=== PATIENT | male | born 1955 | race Caucasian/White ===

== ENCOUNTER 2024-02-25 15:25 | Emergency (ER) | payer MEDICARE, SELFPAY ==
[2024-02-25 15:33] VITALS: BP 146/80; PULSE 59; RESP 16; TEMP 36.8; O2SAT 97; BMI 17.4
--- NOTE | 2024-02-25 15:45 | XRR_ITS ---
PROCEDURE INFORMATION: Exam: XR Chest Exam date and time: 02/25/2024 4:08 PM Age: 68 years old Clinical indication: Other: AMS TECHNIQUE: Imaging protocol: Radiologic exam of the chest. Views: 1 view. COMPARISON: No relevant prior studies available. FINDINGS: Lungs: Unremarkable. No consolidation. Pleural spaces: Unremarkable. No pleural effusion. No pneumothorax. Heart/Mediastinum: Unremarkable. No cardiomegaly. Bones/joints: No acute findings. XR/XR chest 1V portable [id number] IMPRESSION: No acute findings.
--- NOTE | 2024-02-25 15:46 | ECG_ITS ---
[facility] Test Date: 2024-02-25 Pat Name: Tez Hooper Department: Room: Gender: Male Oncologist: : [id number] Requested By: Jenni Juarez Order Number: [id number] Isidra MD: Brice Salinas M.D. Measurements Intervals [place] Rate: 45 P: 232 MD: 246 QRS: 59 QRSD: 94 T: 65 QT: 454 QTc: 396 Interpretive Statements SINUS RHYTHM VOLTAGE CRITERIA FOR LVH [MEETS CRITERIA IN ONE OF: R(aVL), S(V1), R(V5), R(V5/V6)+S(V1)] No previous ECG available for comparison Electronically Signed On 02-25-2024 23:32:26 CDT by Brice Salinas M.D. [id number]
[2024-02-25 16:16] LABS: Basophils # 0.1 10^3/uL (0.0-0.1); Basophils % 0.6 %; Eosinophils # 0.1 10^3/uL (0.0-0.8); Eosinophils % 0.7 %; Hematocrit 40.3 % (37-53); Lymphocytes # 1.9 10^3/uL (0.8-4.8); Lymphocytes % 22.1 %; Mean Corpuscular Volume 94.2 fl (82-101); Mean Platelet Volume 10.5 fL (7.4-10.4); Monocytes % 11.1 %; Neutrophils # 5.56 10^3/uL (1.8-7.7); Neutrophils % 65.1 %; Nucleated Red Blood Cells % 0 %; Platelet Count 166 10^3/cmm (157-399); Red Blood Count 4.28 10^6/uL (3.85-5.65); Red Cell Distribution Width 11.9 % (12.1-15.1); White Blood Count 8.54 10^3/uL (3.29-11.43)
[2024-02-25 16:26] LABS: INR 0.92 (0.8-1.2)
[2024-02-25 16:30] VITALS: BP 158/80; PULSE 64; RESP 16; O2SAT 99
[2024-02-25 16:31] LABS: Alanine Aminotransferase 14 U/L (0-41); Albumin Level 4.2 g/dL (3.5-5.2); Alkaline Phosphatase 75 U/L (40-130); Anion Gap 14.6 (5-19); Aspartate Amino Transferase 19 U/L (0-40); Blood Urea Nitrogen 16 mg/dL (8-23); Calcium 9.3 mg/dL (8.5-10.5); Carbon Dioxide 26 mmol/L (22-29); Chloride 105 mmol/L (98-107); Creatinine Clr Calc Pharmacy 77.1738; Globulin 2.5 g/dL (1.3-4.6); Glomerular Filtration Rate 95.6 mL/min (90-130); Glucose 103 mg/dL (65-115); Lipase 28 U/L (13-60); Osmolality Calculated 295 mOsm/kg (285-295); Potassium 3.6 mmol/L (3.5-5.1); Sodium 142 mmol/L (136-145); Total Bilirubin 0.2 mg/dL (0.15-1.2); Total Protein 6.7 g/dL (6.6-8.7)
[2024-02-25 16:37] LABS: Ammonia 19 umol/L (16-60)
--- NOTE | 2024-02-25 17:03 | CTR_ITS ---
PROCEDURE INFORMATION: Exam: CT Head Without Contrast Exam date and time: 02/25/2024 5:29 PM Age: 68 years old Clinical indication: Altered mental status/memory loss; Other: Hallucinations; Additional info: Facial numbness, pressure in head, HALL, hallucinations TECHNIQUE: Imaging protocol: Computed tomography of the head without contrast. Radiation optimization: All CT scans at this facility use at least one of these dose optimization techniques: automated exposure control; mA and/or kV adjustment per patient size (includes targeted exams where dose is matched to clinical indication); or iterative reconstruction. COMPARISON: No relevant prior studies available. RADIATION DOSE METRICS: Total DLP (mGy-cm): 1035.08 FINDINGS: Brain: No evidence of intra-axial or extra-axial hemorrhage. No mass effect or midline shift. Grayson-white differentiation is maintained. Basilar cisterns are patent. Cerebral ventricles: There is dilatation of the lateral and 3rd ventricles, greater than expected for the degree of white matter atrophy with relative asymmetric dilatation of the right lateral ventricle in comparison to the left. Paranasal sinuses: The visualized paranasal sinuses are well aerated. Mastoid air cells: The visualized mastoids and middle ears are clear. Bones: Unremarkable. No acute fracture. Soft tissues: No gross soft tissue abnormality. CT/CT head wo con* [id number] IMPRESSION: 1. 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 Follow-up MRI of the brain with CSF flow analysis is recommended. Otherwise no acute intracranial abnormality.
[2024-02-25 17:37] LABS: Urine Color Yellow (Yellow)
[2024-02-25 17:38] LABS: Add Urine Microscopic? YES; Bilirubin Urine Neg (Negative); Blood Urine Neg (Negative); Glucose Urine UA Trace (Normal); Ketones Urine 1+ (Negative); Leukocyte Esterase Urine Trace (Negative); Nitrate Urine Negative (Negative); Protein Urine Trace (Negative); Urine Appearance Clear (CLEAR); Urobilinogen Urine Norm (Negative); pH Urine 5 (5-7)
[2024-02-25 17:39] LABS: Bacteria Urine TRACE /hpf; WBC Urine 0-4 /hpf (0-5)
[2024-02-25 17:40] LABS: Add Urine Culture? No; Calcium Oxalate Crystals Urine 0-4 /hpf; Mucus Urine 2+ /hpf
[2024-02-25 18:00] VITALS: BP 134/76; PULSE 47; RESP 16; O2SAT 98
[2024-02-25 19:33] LABS: NT Pro B Type Natriuretic Pept 148 pg/mL (0-125); Thyroid Stimulating Hormone 3.01 uIU/mL (0.27-4.20)
[2024-02-25 19:40] VITALS: BP 142/77; PULSE 47; RESP 16; O2SAT 99
[2024-02-25 20:00] VITALS: BP 156/78; PULSE 45; RESP 18; O2SAT 97
--- NOTE | 2024-02-25 21:31 | W.ED.AMS ---
HPI - Altered Mental Status General: Chief Complaint: Altered Mental Status Stated Complaint: numbness in face, confusion, seeing things Time Seen by Provider: 02/25/24 16:32 Source: patient and family Mode of arrival: ambulatory Limitations: no limitations History of Present Illness: Patient and family provide history. Patient apparently had episodes of what sounds like syncope but very short lasting and would wake up with limited shaking. Family was concerned for possible stroke but no focal weaknesses. He has been having issues with confusion for the past year along with some occasional hallucinations as well as some gait issues. Does report occasional urinary incontinence and definitely some urinary urgency. Mainly brought in to rule out a stroke given the recent fainting spells the past 3 days. MD complaint: altered mental status Review of Systems General: Reports: 10 or more systems reviewed and unremarkable except in HPI and below Physical Exam Const: COMMON NORMALS: no acute distress, average body habitus, healthy appearing, alert and well nourished GENERAL APPEARANCE: well kempt and well developed ORIENTATION/CONSCIOUSNESS: Yes oriented to person, Yes oriented to place and Yes oriented to time (For the most part) HENMT: COMMON NORMALS: normocephalic, atraumatic, external ears normal and moist oral mucous membranes HEAD & SCALP: normocephalic and atraumatic EXTERNAL EAR: Yes external ears normal Eye: COMMON NORMALS: Equal, round and reactive pupils present, EOMs intact bilaterally and conjunctivae normal CONJUNCTIVA: Yes conjunctivae normal PUPIL: Yes Equal, round and reactive pupils present Neck/C-Spine: COMMON NORMALS: full ROM, no lymphadenopathy and supple Chest: CHEST: Yes Symmetrical chest wall rise and No Surgical scars present (Chest) Resp: COMMON NORMALS: normal respiratory effort, No retractions, No use of accessory muscles and clear to auscultation bilaterally AUSCULTATION: clear to auscultation bilaterally Cardio: COMMON NORMALS: regular rate, regular rhythm, S1 normal heart sound present, S2 normal heart sound present, No gallops present (Cardio), No clicks present (Cardio), No murmurs present (Cardio) and No rub (Cardio) RATE: regular rate RHYTHM: regular rhythm HEART SOUNDS: S1 normal heart sound present, S2 normal heart sound present and no murmurs PERIPHERAL PULSES: other (Radial pulses 2+ and symmetric) GI: COMMON NORMALS: Soft to palpation, non-tender and no masses INSPECTION: No abdominal distension PALPATION: Yes Soft to palpation, No Guarding due to palpation present (GI) and No Rebound tenderness present : COMMON NORMALS: Yes no CVA tenderness BLADDER/KIDNEY EXAM: Yes no CVA tenderness Back/Pelvis: COMMON NORMALS: no CVA tenderness Extremity: COMMON NORMALS: normal to inspection, full ROM, capillary refill normal and no clubbing, cyanosis or edema Neuro: SENSORIUM/ORIENTATION: Yes alert, Yes oriented to person, Yes oriented to place and Yes oriented to time (For the most part) Psych: APPEARANCE: Yes well kempt Skin: COMMON NORMALS: no rashes or lesions noted, no wounds, turgor normal and no jaundice GENERAL SKIN EXAM: no rashes or lesions noted and turgor normal Course Vital Signs: Vital signs: Vital Signs Temperature 98.2 F 02/25/24 15:33 Pulse Rate 45 L 02/25/24 20:00 Respiratory Rate 18 02/25/24 20:00 Blood Pressure 156/78 02/25/24 20:00 Pulse Oximetry 97 02/25/24 20:00 Oxygen Delivery Me thod Room Air 02/25/24 20:00 MDM - Altered Mental Status Medical Decision Making Patient examined, symptomology was concerning for hydrocephalus and so CT scan was done and sure enough the ventricles were enlarged on my interpretation. Radiology read gets further detail of lateral and third ventricles with a communicating hydrocephalus. Patient has a follow-up already planned as a new patient visit on Wednesday with neurology. Discussed transfer to the hospital with IR and neurology versus outpatient workup and family and patient are more comfortable with outpatient workup and I agree is for safety. Patient is aware to not drive. He does live with a family member and he will not be left alone during this time. They will follow-up with neurology on Wednesday they are provided a disc of his CT scan. Differential Diagnosis Likely altered mental status and subarachnoid hemorrhage Medical Records I reviewed the patient's medical records. Lab Data I reviewed the patient's lab results. 02/25/24 16:06 02/25/24 16:06 Radiology Impressions Chest X-Ray 02/25/24 15:45 IMPRESSION: No acute findings. Head CT 02/25/24 17:03 IMPRESSION: 1. 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 Follow-up MRI of the brain with CSF flow analysis is recommended. Otherwise no acute intracranial abnormality. Laboratory Results WBC 8.54 10^3/uL (3.29-11.43) 02/25/24 16:06 RBC 4.28 10^6/uL (3.85-5.65) 02/25/24 16:06 Hgb 13.70 g/dL (11.27-16.99) 02/25/24 16:06 Hct 40.3 % (37-53) 02/25/24 16:06 MCV 94.2 fl (82-101) 02/25/24 16:06 MCH 32.0 pg (27-33) 02/25/24 16:06 MCHC 34.0 g/dL (30-55) 02/25/24 16:06 RDW 11.9 % (12.1-15.1) L 02/25/24 16:06 Plt Count 166 10^3/cmm (157-399) 02/25/24 16:06 MPV 10.5 fL (7.4-10.4) H 02/25/24 16:06 Neut % (Auto) 65.1 % 02/25/24 16:06 Lymph % (Auto) 22.1 % 02/25/24 16:06 [place] % (Auto) 11.1 % 02/25/24 16:06 Eos % (Auto) 0.7 % 02/25/24 16:06 Baso % (Auto) 0.6 % 02/25/24 16:06 Neut # (Auto) 5.56 10^3/uL (1.8-7.7) 02/25/24 16:06 Lymph # (Auto) 1.9 10^3/uL (0.8-4.8) 02/25/24 16:06 [place] # (Auto) 1.0 10^3/uL (0.2-0.9) H 02/25/24 16:06 Eos # (Auto) 0.1 10^3/uL (0.0-0.8) 02/25/24 16:06 Baso # (Auto) 0.1 10^3/uL (0.0-0.1) 02/25/24 16:06 Nucleated RBC % (auto) 0 % 02/25/24 16:06 Nucleated RBCs # 0.0 /100WBC 02/25/24 16:06 PT 12.60 SECONDS (12.1-14.9) 02/25/24 16:06 INR 0.92 (0.8-1.2) 02/25/24 16:06 Sodium 142 mmol/L (136-145) 02/25/24 16:06 Potassium 3.6 mmol/L (3.5-5.1) 02/25/24 16:06 Chloride 105 mmol/L (98-107) 02/25/24 16:06 Carbon Dioxide 26 mmol/L (22-29) 02/25/24 16:06 Anion Gap 14.6 (5-19) 02/25/24 16:06 BUN 16 mg/dL (8-23) 02/25/24 16:06 Creatinine 0.8 mg/dL (0.7-1.2) 02/25/24 16:06 GFR Calculation 95.6 mL/min (90-130) 02/25/24 16:06 Glucose 103 mg/dL (65-115) 02/25/24 16:06 Calculated Osmolality 295 mOsm/kg (285-295) 02/25/24 16:06 Calcium 9.3 mg/dL (8.5-10.5) 02/25/24 16:06 Magnesium 2.0 mg/dL (1.7-2.3) 02/25/24 16:06 Total Bilirubin 0.2 mg/dL (0.15-1.2) 02/25/24 16:06 AST 19 U/L (0-40) 02/25/24 16:06 ALT 14 U/L (0-41) 02/25/24 16:06 Alkaline Phosphatase 75 U/L (40-130) 02/25/24 16:06 Ammonia 19 umol/L (16-60) 02/25/24 16:06 NT-Pro-B Natriuret Pep 148 pg/mL (0-125) H 02/25/24 16:06 Total Protein 6.7 g/dL (6.6-8.7) 02/25/24 16:06 Albumin 4.2 g/dL (3.5-5.2) 02/25/24 16:06 Globulin 2.5 g/dL (1.3-4.6) 02/25/24 16:06 Lipase 28 U/L (13-60) 02/25/24 16:06 TSH 3.01 uIU/mL (0.27-4.20) 02/25/24 16:06 Urine Color Yellow (Yellow) 02/25/24 16:45 Urine Appearance Clear (CLEAR) 02/25/24 16:45 Urine pH 5 (5-7) 02/25/24 16:45 Ur Specific [place] 1.030 (1.005-1.030) 02/25/24 16:45 Urine Protein Trace (Negative) 02/25/24 16:45 Urine Glucose (UA) Trace (Normal) H 02/25/24 16:45 Urine Ketones 1+ (Negative) H 02/25/24 16:45 Urine Blood Neg (Negative) 02/25/24 16:45 Urine Nitrate Negative (Negative) 02/25/24 16:45 Urine Bilirubin Neg (Negative) 02/25/24 16:45 Urine Urobilinogen Norm mg/dL (Negative) 02/25/24 16:45 Ur Leukocyte Esterase Trace (Negative) H 02/25/24 16:45 Urine RBC None /hpf (0-2) 02/25/24 16:45 Urine WBC 0-4 /hpf (0-5) H 02/25/24 16:45 Ur Squamous Epith Cells None /hpf (0-5) 02/25/24 16:45 Calcium Oxalate Crystal 0-4 /hpf H 02/25/24 16:45 Amorphous Sediment Not Reportable 02/25/24 16:45 Urine Bacteria Trace /hpf (NONE) 02/25/24 16:45 Urine Mucus 2+ /hpf 02/25/24 16:45 All radiology interpretation(s) finalized by discharge Discharge Plan Discharge Patient Disposition: Home Clinical Impression: Hydrocephalus, idiopathic normal pressure Condition: Stable Discharge Orders: Discharge ED (Routine); Ordered 02/25/24 Ordered By: Manjinder Moore Referrals: Franklin Fleming MD [Primary Care Provider] - Discharge Diet: Usual diet Discharge Activity: Limit activity as instructed Patient Instructions: Altered Mental Status (ED) Coding Level of Care Code ED Practicing Dermatologist for Armin Moon
[2024-02-25 22:05] VITALS: BP 156/78; PULSE 45; RESP 18; TEMP 36.8; O2SAT 97
== END 2024-02-25 22:06 | disposition home or self-care (01) ==
PROVIDERS: Emergency Medicine; Emergency Provider Emergency Medicine; PCP Family Medicine
DX: G91.8 Other hydrocephalus (principal)
CPT/HCPCS: 36415; 70450; 71045; 80053; 81001; 82140; 83690; 83735; 83880; 84443; 85025; 85610; 93005; 99285